=== PATIENT | female | born 1990 | race Caucasian/White ===

== ENCOUNTER 2019-02-23 08:36 | Emergency (ER) | payer BC ==
--- NOTE | 2019-02-23 10:31 | ER Document Report ---
ED GI/ <ALTAGRACIA REN - Last Filed: 02/23/19 11:36> - General Information source: Patient TRAVEL OUTSIDE OF THE [place] IN LAST 30 DAYS: No <BRITTANY GARZA - Last Filed: 02/23/19 13:17> - General Chief Complaint: Abdominal Pain Stated Complaint: ABDOMINAL PAIN Time Seen by Provider: 02/23/19 09:48 Notes: HPI: Patient is a 28-year-old female that presents today stating the onset around 2 days ago of some intermittent right lower quadrant pain worse with standing and with certain movements. She denies any dysuria, fevers, vomiting, or diarrhea. She does not believe she is . No heavy vaginal bleeding or vaginal discharge. No flank pain. No history of kidney stones or ovarian pathology or cyst. The pain came on slowly and progressed. It has been intermittent. ROS: See HPI All other review of systems reviewed and otherwise negative Reviewed vital signs and nursing note as charted by RN. PHYSICAL EXAM: CONSTITUTIONAL: Alert and oriented and responds appropriately to questions. Well-appearing; well-nourished HEAD: Normocephalic; atraumatic CARD: Regular rate and rhythm; no murmurs; symmetric distal pulses RESP: Normal chest excursion without splinting or tachypnea; breath sounds clear and equal bilaterally; no wheezes, no rhonchi, no rales ABD/GI: Normal bowel sounds; non-distended; soft, no tenderness palpation of the right lower quadrant without rebound or guarding. No palpable masses or abdominal bruits present BACK: The back appears normal and is non-tender to palpation EXT: Normal ROM in all joints; non-tender to palpation; no edema SKIN: No acute lesions noted NEURO: CN 2-12 intact; 5/5 bilateral upper and lower extremity strength with sensation intact to light touch PSYCH: The patient's mood and manner are appropriate. Grooming and personal hygiene are appropriate. (BRITTANY GARZA) Past Medical History - Social History Smoking Status: Never Smoker Chew tobacco use (# tins/day): No Frequency of alcohol use: Occasional Drug Abuse: None Family History: Reviewed & Not Pertinent Patient has suicidal ideation: No Patient has homicidal ideation: No Neurological Medical History: Reports: Hx Migraine <BRITTANY GARZA - Last Filed: 02/23/19 13:17> Physical Exam - Vital signs Vitals: Temp Pulse Resp BP Pulse Ox 97.8 F 102 H 16 150/86 H 97 02/23/19 08:41 02/23/19 08:41 02/23/19 08:41 02/23/19 08:41 02/23/19 08:41 Course - Laboratory Result Diagrams: 02/23/19 11:23 02/23/19 11:23 <BRITTANY GARZA - Last Filed: 02/23/19 13:17> - Re-evaluation Re-evalutation: 02/23/19 10:31 Given the history and physical, intermittent symptoms, peak intensity 6 out of 10, do believe acute ovarian torsion to be unlikely. Patient has been afebrile without vomiting. She has had this pain intermittently for 2 days. This would be atypical for acute appendicitis. I would therefore proceed with a transvaginal ultrasound and a pelvic examination with the urine analysis and test to evaluate an ovarian cyst or other acute pathology. If this is unremarkable, patient will have a CT scan performed to evaluate the possibility of atypical appendicitis. 02/23/19 12:14 Pelvic examination was fairly unremarkable. No cervical motion tenderness. Labs and urine analysis as recorded. Ultrasound is unremarkable. No change in exam. We will proceed with a CT scan of the abdomen and pelvis. 02/23/19 13:15 No change in exam. Patient has no left lower quadrant tenderness. Vital signs are stable. CT scan and ultrasound as recorded. Urine culture has been sent. I will start the patient a short course of Keflex with strict return precautions and follow-up with the primary care provider. I do not believe any other imaging or laboratory work is necessary at this moment. (BRITTANY GARZA) - Vital Signs Vital signs: Temp Pulse Resp BP Pulse Ox 97.8 F 102 H 16 150/86 H 97 02/23/19 08:41 02/23/19 08:41 02/23/19 08:41 02/23/19 08:41 02/23/19 08:41 - Laboratory Laboratory results interpreted by me: 02/23/19 02/23/19 10:45 11:23 WBC 11.1 H MCH 26.1 L RDW 15.6 H Urine Ketones TRACE H Ur Leukocyte Esterase SMALL H Procedures - Pelvic Exam Pelvic exam Time completed: 11:20 Cultures obtained: Yes Wet prep obtained: Yes Bimanual exam performed: Yes - NO CERVICAL MOTION TENDERNESS Witnessed by: PARK HOWELL. <ALTAGRACIA REN - Last Filed: 02/23/19 11:36> - Pelvic Exam Pelvic exam Notes: 02/23/19 11:37 External genitalia was unremarkable without vaginal discharge, erythema, edema, excoriation or tears. Patient tolerated the insertion of the speculum fairly well with minimal discomfort. Was able to visualize the cervix which was closed. Small amount of cloudy white discharge noted around the cervix and within the vaginal vault. Specimens were obtained as documented. Bimanual exam was performed without notable cervical motion tenderness. (ALTAGRACIA REN) Discharge <ALTAGRACIA REN - Last Filed: 02/23/19 11:36> <BRITTANY GARZA - Last Filed: 02/23/19 13:17> - Discharge Clinical Impression: Left lower quadrant abdominal pain Condition: Good Disposition: HOME, SELF-CARE Additional Instructions: Come back immediately for any increased pain, change in location or quality of pain, fevers or vomiting, or any other acute problems. Please make sure that she follow-up with the primary care physician and urine culture as discussed. Prescriptions: Cephalexin Monohydrate [Keflex 500 mg Capsule] 500 mg PO TID 5 Days capsule
[2019-02-23 11:10] LABS: APPEARANCE,URINE SLIGHTLY-CLOUDY; BILIRUBIN,URINE NEGATIVE (NEGATIVE); COLOR,URINE YELLOW; GLUCOSE, URINE NEGATIVE (NEGATIVE); KETONES,URINE TRACE mg/dL (NEGATIVE); LEUKOCYTE ESTERASE,URINE SMALL (NEGATIVE); NITRITE,URINE NEGATIVE (NEGATIVE); PROTEIN,URINE NEGATIVE (NEGATIVE); UROBILINOGEN,URINE NEGATIVE mg/dL (<2.0)
[2019-02-23 11:42] LABS: ABSOLUTE EOSINOPHILS # (AUTO) 0.1 10^3/uL (0.0-0.6); ABSOLUTE LYMPHOCYTES (AUTO) 2.6 10^3/uL (0.5-4.7); ABSOLUTE MONOCYTES (AUTO) 0.6 10^3/uL (0.1-1.4); ABSOLUTE NEUT (AUTO) 7.8 10^3/uL (1.7-8.2); BASOPHILS % (AUTO) 0.4 % (0-2); EOSINOPHILS % (AUTO) 0.5 % (0-6); HEMATOCRIT 39.6 % (36.0-47.0); LYMPHOCYTES % (AUTO) 23.5 % (13-45); MEAN CORPUSCULAR HEMOGLOBIN 26.1 pg (27.0-33.4); MEAN CORPUSCULAR HGB CONC 32.8 g/dL (32.0-36.0); MEAN CORPUSCULAR VOLUME 80 fl (80-97); MONOCYTES % (AUTO) 5.6 % (3-13); PLATELET COUNT 344 10^3/uL (150-450); RED BLOOD COUNT 4.98 10^6/uL (3.72-5.28); RED CELL DISTRIBUTION WIDTH 15.6 % (11.5-14.0); TOTAL CELLS COUNTED % (AUTO) 100 %; WHITE BLOOD COUNT 11.1 10^3/uL (4.0-10.5)
--- NOTE | 2019-02-23 11:42 | RADIOLOGY REPORT (SQ) ---
EXAM DESCRIPTION: U/S NON OB PEL TV W/DOPPLER COMPLETED DATE/TIME: 02/23/2019 11:30 am REASON FOR STUDY: 38; RLQ pain COMPARISON: None. TECHNIQUE: Dynamic and static grayscale images acquired of the pelvis via transvaginal approach and recorded on PACS. Additional selected color Doppler and spectral images recorded. LIMITATIONS: None. FINDINGS: UTERUS: Contour normal. No mass. ENDOMETRIAL STRIPE: No focal or generalized thickening. No masses. CERVIX: 3.5 cm RIGHT OVARY AND DOPPLER: Normal size. No worrisome masses. Normal arterial vascular flow without evid ence for torsion. LEFT OVARY AND DOPPLER: Normal size. No worrisome masses. Normal arterial vascular flow without evide nce for torsion. FREE FLUID: None noted. OTHER: No other significant finding. MEASUREMENTS: UTERUS: 7.3 x 2.9 x 2.9 cm. ENDOMETRIAL STRIPE: 4 mm. RIGHT OVARY: 2 x 2.2 x 1.5 cm. LEFT OVARY: 2.4 x 1.3 x 1.7 cm. IMPRESSION: NORMAL TRANSVAGINAL PELVIC ULTRASOUND. TECHNICAL DOCUMENTATION: JOB ID: [id number]- All Rights Reserved Rev Reading location - IP/workstation name: [email or web address]
[2019-02-23 11:49] LABS: BACTERIA (WET MOUNT) 4+ BACTERIA SEEN; EPITHELIALS (WET MOUNT) 3+ EPITHELIALS SEEN; T.VAGINALIS (WET MOUNT) NO TRICHOMONAS SEEN; WBCS (WET MOUNT) 4+ WBCS SEEN; YEAST (WET MOUNT) NO YEAST SEEN
[2019-02-23 12:02] LABS: ANION GAP 12 (5-19); BLOOD UREA NITROGEN 12 mg/dL (7-20); CALCIUM 9.9 mg/dL (8.4-10.2); CARBON DIOXIDE 23 mmol/L (22-30); CHLORIDE 106 mmol/L (98-107); GLUCOSE 75 mg/dL (75-110); POTASSIUM 4.3 mmol/L (3.6-5.0)
--- NOTE | 2019-02-23 13:06 | RADIOLOGY REPORT (SQ) ---
EXAM DESCRIPTION: CT ABD/PELVIS WITH IV ONLY COMPLETED DATE/TIME: 02/23/2019 12:45 pm REASON FOR STUDY: 38; RLQ pain COMPARISON: None. TECHNIQUE: CT scan of the abdomen and pelvis performed using helical scanning technique with dynamic intravenous contrast injection. No oral contrast. Images reviewed with lung, soft tissue, and bone windows. Reconstructed coronal and sagittal MPR images reviewed. Delayed images for evaluation of the urinary system also acquired. All images stored on PACS. All CT scanners at this facility use dose modulation, iterative reconstruction, and/or weight based d osing when appropriate to reduce radiation dose to as low as reasonably achievable (ALARA). [facility]: Dose Right [facility]: CareDose [facility]: Dose Right [facility]: Teradose 4D [facility]: Tingz CONTRAST TYPE AND DOSE: Contrast/concentration: Isovue 350.00 mg/ml; Total Contrast Delivered: 72.0 ml; Total Saline Delivered: 66.0 ml RENAL FUNCTION: GFR > 60. RADIATION DOSE: CT Rad equipment meets quality standard of care and radiation dose reduction techniq ues were employed. CTDIvol: 5.7 - 7.3 mGy. DLP: 684 mGy-cm.. LIMITATIONS: None. FINDINGS: LOWER CHEST: No acute findings. LIVER: The liver morphology is non cirrhotic. The portal veins are patent. There is a 10 mm hypoden se lesion in the hepatic dome a (image 11 of series 3) that is indeterminate. SPLEEN: No splenomegaly. PANCREAS: No acute abnormality GALLBLADDER: No abnormality that is apparent on CT. ADRENAL GLANDS: No abnormality. RIGHT KIDNEY AND URETER: No solid masses. No calcifications. No hydronephrosis or hydroureter. LEFT KIDNEY AND URETER: No solid masses. No calcifications. No hydronephrosis or hydroureter. AORTA AND VESSELS: No aneurysm or dissection of the abdominal aorta. The abdominopelvic vasculature is patent. RETROPERITONEUM: No retroperitoneal adenopathy, hemorrhage or mass. BOWEL AND PERITONEAL CAVITY: There is an ovoid fat-density with surrounding fat stranding adjacent to the sigmoid colon (image 65 of series 3 and 24 of series 601) that could represent an epiploic appen dagitis. There is no evidence of obstruction or bowel wall thickening. There is no free intraperito malaika air or fluid. APPENDIX: Normal. PELVIS: No abnormality of the uterus and ovaries. The urinary bladder is partially distended. ABDOMINAL WALL: Fat containing umbilical hernia. BONES: No acute findings. OTHER: No other finding. IMPRESSION: Ovoid fat-density with surrounding fat stranding adjacent to the sigmoid colon (image 65 of series 3 and 24 of series 601) that could represent an epiploic appendagitis. TECHNICAL DOCUMENTATION: JOB ID: [id number] Quality ID # [id number]: Final reports with documentation of one or more dose reduction techniques (e.g., Au tomated exposure control, adjustment of the mA and/or kV according to patient size, use of iterative reconstruction technique) 2010 [employer]- All Rights Reserved Reading location - IP/workstation name: [email or web address]
[2019-02-23 13:10] LABS: CHLAM PCR NOT DETECTED (NOT DETECT)
[2019-02-23] MEDS ORDERED: CEPHALEXIN 500 MG CAPSULE PO ONE (13:15)
[2019-02-23 13:42] VITALS: BP 126/74
== END 2019-02-23 13:43 | disposition home or self-care (01) ==
LOC: ER 08:36
DX: R10.31 Right lower quadrant pain (principal)
CPT/HCPCS: 36415; 74177; 76830; 80048; 81001; 81025; 85025; 87086; 87210; 87491; 87591; 93976